=== PATIENT | female | born 1935 | race Caucasian/White ===

== ENCOUNTER → 2016-11-20 | Outpatient (CLI) | payer MEDICARE, BC | LOC: MMGSC 11:52 | PROVIDERS: ATTEND Family Medicine | DX: E03.9 Hypothyroidism, unspecified (principal); R94.6 Abnormal results of thyroid function studies | CPT/HCPCS: 36415; 84439; 84443; 84480 ==

== ENCOUNTER → 2017-01-08 | Outpatient (CLI) | payer MEDICARE, BC | END | disposition home or self-care (01) | LOC: MMGSC 12:24 | PROVIDERS: ATTEND Family Medicine | DX: E03.9 Hypothyroidism, unspecified (principal) | CPT/HCPCS: 36415; 84439; 84443; 84480 ==

== ENCOUNTER → 2017-02-25 | Outpatient (CLI) | payer MEDICARE, BC ==
[2017-02-25 18:46] LABS: Basophils # (A) 0.1 k/uL (0-0.2); Basophils % (A) 1 %; CH 29.6; CHCM 32.2; Eosinophils # (A) 0.1 k/uL (0-0.7); Eosinophils % (A) 2 %; HCT 50.7 % (34.0-46.0); HDW 2.25; HGB 16.1 gm/dL (11.4-16.0); Luc # (Auto) 0.13; Luc % (Auto) 2; Lymphocytes # (A) 1.3 k/uL (1.0-4.8); Lymphocytes % (A) 23 %; MCH 29.3 pg (25.0-35.0); MCHC 31.7 g/dL (31.0-37.0); MCV 92.5 fL (80.0-100.0); Mean Platelet Volume 9.2; Monocytes # (A) 0.4 k/uL (0-1.0); Monocytes % (A) 7 %; Neutrophils # (A) 3.9 k/uL (1.3-7.7); Neutrophils % (A) 66 %; RBC 5.49 m/uL (3.80-5.40); RDW 13.4 % (11.5-15.5)
[2017-02-25 18:53] LABS: Calcium 9.7 mg/dL (8.4-10.2); Potassium 4.8 mmol/L (3.5-5.1); Total Bilirubin 0.7 mg/dL (0.2-1.3); Total Protein 7.2 g/dL (6.3-8.2)
[2017-02-25 19:02] LABS: % Iron Saturation 31.9 % (20-50)
== END | disposition home or self-care (01) ==
LOC: MMGSC 12:13
PROVIDERS: ATTEND Family Medicine
DX: K92.1 Melena (principal); E03.9 Hypothyroidism, unspecified; R53.83 Other fatigue; M10.9 Gout, unspecified
CPT/HCPCS: 36415; 80053; 82728; 83540; 83550; 84439; 84443; 84480; 85025; 87077; 87086; 87186

== ENCOUNTER → 2017-04-07 | Outpatient (CLI) | payer MEDICARE, BC | END | disposition home or self-care (01) | LOC: MMGSC 12:00 | PROVIDERS: ATTEND Family Medicine | DX: R94.6 Abnormal results of thyroid function studies (principal) | CPT/HCPCS: 36415; 84439; 84443; 84481 ==